=== PATIENT | female | born 1945 | race African-American/Black ===

== ENCOUNTER 2016-09-02 19:34 | Emergency (ER) | payer OTHER ==
[~2016-09-02] VITALS: Ht 160 cm; Wt 59.0 kg
--- NOTE | ~2016-09-02 | EKG ---
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
[~2016-09-02 19:34] MED LIST: ATIVAN1 MG PO; HYDROCHLOROTHIA25 M1 PO; TOPROL XL50 MG PO
[2016-09-02] MEDS ORDERED: ATENOLOL 100MG100 MG PO (20:40)
[2016-09-02] MEDS ORDERED: ASPIR 8181 MG PO (20:41)
[2016-09-02] MEDS ORDERED: VALSARTAN/HCTZ (20:41)
[2016-09-02 21:05] LABS: ABSOLUTE NEUTROPHILS 6.7 thou/uL (1.4-8.2); BASOPHILS 0.3 % (0.0-2.0); EOSINOPHILS 1.4 % (0.0-3.0); HEMATOCRIT 32.2 % (37.0-47.0); HEMOGLOBIN 11.5 gm/dL (12.0-15.0); LYMPHOCYTES 21.3 % (24.0-44.0); MCH 29.1 pg (26.0-34.0); MCHC 35.8 % (28.0-37.0); MCV 81.5 fL (80.0-100.0); PLATELET COUNT 220 thou/uL (150-400); RBC 3.96 mil/uL (4.20-5.00); RDW 18.3 % (10.5-14.5); WBC 9.2 thou/uL (4.0-11.0)
[2016-09-02 21:06] LABS: MANUAL DIFF NO
[2016-09-02 21:11] LABS: ANION GAP 8 mmol/L (7-16); BUN 17 mg/dL (7-18); CALCIUM 9.1 mg/dL (8.5-10.1); CHLORIDE 103 mmol/L (98-107); CO2 28 mmol/L (21-32); CREATININE 0.6 mg/dL (0.6-1.3); GLUCOSE 105 mg/dL (70-99); POTASSIUM 3.8 mmol/L (3.5-5.1); SODIUM 139 mmol/L (136-145)
[2016-09-02 21:24] LABS: ALKALINE PHOSPHATASE 67 U/L (46-116); MAGNESIUM 1.8 mg/dL (1.8-2.4); NT-PRO BRAIN NAT PEPTIDE 62 pg/mL (<300); SGOT 28 U/L (15-37); SGPT 43 U/L (30-65); TOTAL BILIRUBIN 1.7 mg/dL (<0.1-1.0); TOTAL PROTEIN 7.8 g/dL (6.4-8.2); TROPONIN-I < 0.04 ng/mL (<0.04-0.07)
[2016-09-02] MEDS ORDERED: CLONIDINE0.1 PO (21:44)
[2016-09-02] MEDS ORDERED: ATIVAN0.5 MG PO (21:44)
[2016-09-02 22:08] VITALS: BP 134/57
== END 2016-09-02 22:08 | disposition home or self-care (01) ==
LOC: ER 19:34
PROVIDERS: Emergency Medicine
DX: I10 Essential (primary) hypertension (principal); F41.9 Anxiety disorder, unspecified; R20.2 Paresthesia of skin

== ENCOUNTER 2021-05-09 10:58 | Emergency (ER) | payer OTHER ==
[~2021-05-09] VITALS: Ht 160 cm; Wt 56.7 kg
[~2021-05-09 10:58] MED LIST changes: +ASPIR 8181 MG PO; +ATENOLOL 100MG100 MG PO; +ATIVAN0.5 MG PO; +CLONIDINE0.1 PO; +VALSARTAN/HCTZ
[2021-05-09] MEDS ORDERED: HYDROCHLOROTHIA25 M1 PO (11:22)
[2021-05-09 11:35] LABS: WBC 8.8 thou/uL (4.0-11.0)
[2021-05-09 11:37] LABS: ABSOLUTE NEUTROPHILS 7.2 thou/uL (1.4-8.2); BASOPHILS 0.7 % (0.0-2.0); EOSINOPHILS 0.3 % (0.0-3.0); HEMOGLOBIN 12.1 gm/dL (12.0-15.0); LYMPHOCYTES 13.6 % (24.0-44.0); MCH 27.5 pg (26.0-34.0); MCHC 35.7 g/dL (28.0-37.0); MCV 77.1 fL (80.0-100.0); MONOCYTES 4.1 % (1.0-8.0); PLATELET COUNT 245 thou/uL (150-400); POLYS 81.3 % (36.0-66.0); RBC 4.41 mil/uL (4.20-5.00); RDW 19.4 % (10.5-14.5)
[2021-05-09 11:44] LABS: CREATININE 0.7 mg/dL (0.6-1.0); POTASSIUM 3.6 mmol/L (3.5-5.1)
[2021-05-09 11:47] LABS: URIC ACID* 6.2 mg/dL (2.6-6.0)
[2021-05-09] MEDS ORDERED: INDOMETHACIN 2525 MG PO (12:50)
[2021-05-09] MEDS ORDERED: NORCO5 PO (12:50)
[2021-05-09 12:57] LABS: ANISOCYTOSIS 2+; MACROCYTES 1+; MICROCYTES FEW
[2021-05-09 13:05] VITALS: BP 205/97
== END 2021-05-09 13:06 | disposition home or self-care (01) ==
LOC: ER 10:58
PROVIDERS: Emergency Medicine
DX: M25.572 Pain in left ankle and joints of left foot (principal); M10.072 Idiopathic gout, left ankle and foot; I10 Essential (primary) hypertension; Z79.82 Long term (current) use of aspirin; Z79.899 Other long term (current) drug therapy